=== PATIENT | female | born 1975 | race African-American/Black ===

== ENCOUNTER 2018-06-08 16:45 | Emergency (ER) | payer MEDICAID ==
[2018-06-08] MEDS ORDERED: Ketorolac INJ* 60 MG/2 ML VIAL IM ONE (18:38)
[2018-06-08] MEDS ORDERED: HYDROcodone/ACETAMIN 5-325 MG* 1 TAB PO ONE (18:38)
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
[2018-06-08 19:15] VITALS: BP 125/85
== END 2018-06-08 19:13 | disposition home or self-care (01) ==
LOC: ED 16:45
DX: K08.89 Other specified disorders of teeth and supporting structures (principal); F17.200 Nicotine dependence, unspecified, uncomplicated
CPT/HCPCS: 96372; 99282; J1885

== ENCOUNTER 2018-10-15 13:32 | Emergency (ER) | payer OTHER ==
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
[2018-10-15] MEDS ORDERED: Ketorolac INJ* 60 MG/2 ML VIAL IM ONE (14:23)
[2018-10-15 15:47] VITALS: BP 0/0
== END 2018-10-15 15:44 | disposition home or self-care (01) ==
LOC: ED 13:32
DX: S20.211A Contusion of right front wall of thorax, initial encounter (principal); K08.89 Other specified disorders of teeth and supporting structures; Z72.0 Tobacco use; Y04.0XXA Assault by unarmed brawl or fight, initial encounter; Y92.9 Unspecified place or not applicable
CPT/HCPCS: 96372; 99282; J1885

== ENCOUNTER 2018-12-18 17:36 | Emergency (ER) | payer OTHER ==
[2018-12-18 18:19] LABS: Influenza A Molecular NEGATIVE (Negative); Influenza B Molecular NEGATIVE (Negative)
[2018-12-18] MEDS ORDERED: Acetaminophen TAB* 325 MG PO ONE (20:45)
[2018-12-18] MEDS ORDERED: Albuterol/Ipratropium NEB.SOL* Albuterol 2.5 MG/Ipratropium 0.5 MG 3 ML INH ONE (21:19)
[2018-12-18] MEDS ORDERED: Oseltamivir CAP* 75 MG CAP PO ONE (21:21)
[2018-12-18] MEDS ORDERED: Ibuprofen TAB* 600 MG PO ONE (21:22)
[2018-12-18 21:30] LABS: ABS Basophils 0 10^3/ul (0-0.2); ABS Eosinophils 0 10^3/ul (0-0.6); ABS Lymphocytes 0.4 10^3/ul (1.0-4.8); ABS Monocytes 0.5 10^3/ul (0-0.8); ABS Neutrophils 3.9 10^3/ul (1.5-7.7); ABS Nucleated RBC 0 10^3/ul; Eosinophil % 0.2 %; Hematocrit 44 % (35-47); Hemoglobin 14.7 g/dl (12.0-16.0); Lymphocyte % 8.2 %; Mean Corpuscular HGB Conc 34 g/dl (31-36); Mean Corpuscular Hemoglobin 32 pg (27-31); Mean Corpuscular Volume 95 fL (80-97); Mean Platelet Volume 6.6 fL (7.4-10.4); Nucleated Red Blood Cells % 0.1; Platelet Count 200 10^3/ul (150-450); Red Cell Distribution Width 13 % (10.5-15); White Blood Count 4.8 10^3/ul (3.5-10.8)
[2018-12-18] MEDS: NS 0.9% 1000 ML** 1,000 ML IV ONE ×2 (21:42→21:58)
[2018-12-18] MEDS ORDERED: NS 0.9% 1000 ML** 1,000 ML IV ONE (21:51)
[2018-12-18 21:54] LABS: Albumin 4.9 g/dL (3.2-5.2); BUN/Creatinine Ratio 8.9 (8-20); C Reactive Protein 14.59 mg/L (<8.01); Calcium 9.4 mg/dL (8.6-10.3); EGFR African American 57.4 (>60); EGFR Non-African American 47.4 (>60); Globulin 2.5 g/dL (2-4); Potassium 3.6 mmol/L (3.5-5.0); Total Bilirubin 0.8 mg/dL (0.2-1.0); Total Protein 7.4 g/dL (6.4-8.9)
--- NOTE | 2018-12-18 22:42 | ED ---
Influenza-Like Illness - HPI Summary HPI Summary: 43-year-old female presents with flulike symptoms today. She admits to chills fever and body aches. She states that her chest feels tight and that feels short of breath. She denies abdominal pain. No nausea and vomiting. She states that she just feels very unwell. She did not take anything for her fever. Has no medical conditions. States she does get frequent bronchitis. She admits to headache. Denies any neck stiffness. is sick with similar symptoms. she admits to a cough - History of Current Complaint Chief Complaint: EDFluSymptoms Time Seen by Provider: 12/18/18 21:07 - Allergy/Home Medications Allergies/Adverse Reactions: Allergies Allergy/AdvReac Type Severity Reaction Status Date / Time No Known Allergies Allergy Verified 12/18/18 17:48 Home Medications: Home Medications traZODone TAB* [Desyrel TAB*] 50 mg PO BEDTIME 12/18/18 [History Confirmed 12/18] PMH/Surg Hx/FS Hx/Imm Hx Endocrine/Hematology History: Denies: Hx Anticoagulant Therapy, Hx Blood Disorders Respiratory History: Reports: Hx Chronic Obstructive Pulmonary Disease (COPD) Denies: Hx Asthma Infectious Disease History: No Infectious Disease History: Denies: Traveled Outside the [place] in Last 30 Days - Family History Known Family History: Positive: Non-Contributory - Social History Alcohol Use: None Hx Substance Use: No Substance Use Type: Reports: None Hx Tobacco Use: Yes Smoking Status (MU): Light Every Day Tobacco Smoker Review of Systems Positive: Fever, Chills, Fatigue Negative: Chest Pain Positive: Shortness Of Breath, Cough Negative: Abdominal Pain All Other Systems Reviewed And Are Negative: Yes Physical Exam Triage Information Reviewed: Yes Vital Signs On Initial Exam: Initial Vitals Temp Pulse Resp BP Pulse Ox 103.1 F 124 16 139/101 95 12/18/18 17:45 12/18/18 17:45 12/18/18 17:45 12/18/18 17:45 12/18/18 17:45 Vital Signs Reviewed: Yes Appearance: Positive: Ill-Appearing Skin: Positive: Warm, Dry Head/Face: Positive: Normal Head/Face Inspection Eyes: Positive: Normal, EOMI, VANI, Conjunctiva Clear ENT: Positive: Normal ENT inspection, Pharynx normal, TMs normal Neck: Positive: Supple, Nontender, No Lymphadenopathy. Negative: Nuchal Rigidity Respiratory/Lung Sounds: Positive: Breath Sounds Present, Wheezes Cardiovascular: Positive: Normal, RRR Abdomen Description: Positive: Nontender, Soft Bowel Sounds: Positive: Present Musculoskeletal: Positive: Normal Neurological: Positive: Normal Psychiatric: Positive: Normal Diagnostics - Vital Signs Vital Signs Temp Pulse Resp BP Pulse Ox 12/18/18 22:17 105 138/78 95 12/18/18 22:00 108 96 12/18/18 21:48 120 124/77 98 12/18/18 21:33 108 16 100 12/18/18 21:23 119 96 12/18/18 20:15 102.2 F 120 20 145/99 99 12/18/18 17:45 103.1 F 124 16 139/101 95 - Laboratory Lab Results: Lab Results 12/18/18 12/18/18 12/18/18 Range/Units 18:07 21:22 21:22 WBC 4.8 (3.5-10.8) 10^3/ul RBC 4.60 (4.00-5.40) 10^6/ul Hgb 14.7 (12.0-16.0) g/dl Hct 44 (35-47) % MCV 95 (80-97) fL MCH 32 H (27-31) pg MCHC 34 (31-36) g/dl RDW 13 (10.5-15) % Plt Count 200 (150-450) 10^3/ul MPV 6.6 L (7.4-10.4) fL Neut % (Auto) 81.9 % Lymph % (Auto) 8.2 % [place] % (Auto) 9.5 % Eos % (Auto) 0.2 % Baso % (Auto) 0.2 % Absolute Neuts (auto) 3.9 (1.5-7.7) 10^3/ul Absolute Lymphs (auto) 0.4 L (1.0-4.8) 10^3/ul Absolute Monos (auto) 0.5 (0-0.8) 10^3/ul Absolute Eos (auto) 0 (0-0.6) 10^3/ul Absolute Basos (auto) 0 (0-0.2) 10^3/ul Absolute Nucleated RBC 0 10^3/ul Nucleated RBC % 0.1 Sodium 133 L (135-145) mmol/L Potassium 3.6 (3.5-5.0) mmol/L Chloride 103 (101-111) mmol/L Carbon Dioxide 21 L (22-32) mmol/L Anion Gap 9 (2-11) mmol/L BUN 11 (6-24) mg/dL Creatinine 1.24 H (0.51-0.95) mg/dL Est GFR ( Amer) 57.4 (>60) Est GFR (Non-Af Amer) 47.4 (>60) BUN/Creatinine Ratio 8.9 (8-20) Glucose 146 H (70-100) mg/dL Lactic Acid (0.5-2.0) mmol/L Calcium 9.4 (8.6-10.3) mg/dL Total Bilirubin 0.80 (0.2-1.0) mg/dL AST 15 (13-39) U/L ALT 15 (7-52) U/L Alkaline Phosphatase 54 (34-104) U/L C-Reactive Protein 14.59 H (<8.01) mg/L Total Protein 7.4 (6.4-8.9) g/dL Albumin 4.9 (3.2-5.2) g/dL Globulin 2.5 (2-4) g/dL Albumin/Globulin Ratio 2.0 (1-3) Influenza A (Rapid) Negative (Negative) Influenza B (Rapid) Negative (Negative) 12/18/18 Range/Units 21:22 WBC (3.5-10.8) 10^3/ul RBC (4.00-5.40) 10^6/ul Hgb (12.0-16.0) g/dl Hct (35-47) % MCV (80-97) fL MCH (27-31) pg MCHC (31-36) g/dl RDW (10.5-15) % Plt Count (150-450) 10^3/ul MPV (7.4-10.4) fL Neut % (Auto) % Lymph % (Auto) % [place] % (Auto) % Eos % (Auto) % Baso % (Auto) % Absolute Neuts (auto) (1.5-7.7) 10^3/ul Absolute Lymphs (auto) (1.0-4.8) 10^3/ul Absolute Monos (auto) (0-0.8) 10^3/ul Absolute Eos (auto) (0-0.6) 10^3/ul Absolute Basos (auto) (0-0.2) 10^3/ul Absolute Nucleated RBC 10^3/ul Nucleated RBC % Sodium (135-145) mmol/L Potassium (3.5-5.0) mmol/L Chloride (101-111) mmol/L Carbon Dioxide (22-32) mmol/L Anion Gap (2-11) mmol/L BUN (6-24) mg/dL Creatinine (0.51-0.95) mg/dL Est GFR ( Amer) (>60) Est GFR (Non-Af Amer) (>60) BUN/Creatinine Ratio (8-20) Glucose (70-100) mg/dL Lactic Acid 1.6 (0.5-2.0) mmol/L Calcium (8.6-10.3) mg/dL Total Bilirubin (0.2-1.0) mg/dL AST (13-39) U/L ALT (7-52) U/L Alkaline Phosphatase (34-104) U/L C-Reactive Protein (<8.01) mg/L Total Protein (6.4-8.9) g/dL Albumin (3.2-5.2) g/dL Globulin (2-4) g/dL Albumin/Globulin Ratio (1-3) Influenza A (Rapid) (Negative) Influenza B (Rapid) (Negative) Result Diagrams: 12/18/18 21:22 12/18/18 21:22 Lab Statement: Any lab studies that have been ordered have been reviewed, and results considered in the medical decision making process. - Radiology chest Radiology Interpretation Completed By: ED Physician Summary of Radiographic Findings: nad Re-Evaluation - Re-Evaluation First Eval Re-Evaluation Time: 22:46 Change: Improved Comment: lungs CTA. feeling better Flu Symptom Course/Dx - Course Course Of Treatment: 43-year-old female presents with flulike symptoms today. She admits to chills fever and body aches. She states that her chest feels tight and that feels short of breath. She denies abdominal pain. No nausea and vomiting. She states that she just feels very unwell. She did not take anything for her fever. Has no medical conditions. States she does get frequent bronchitis. She admits to headache. Denies any neck stiffness. is sick with similar symptoms. On exam wheezing noted. gave breathing treatment and symptoms improve. Chest x-ray is normal. White blood count normal. Gave fluids and tachycardia resolved. is flu a positive so likely has the flu. We'll treat with Tamiflu. Patient understands agrees with plan. - Diagnoses Differential Diagnosis/HQI/PQRI: Positive: Influenza, Pneumonia, Upper Respiratory Infection Provider Diagnoses: Influenza Discharge - Sign-Out/Discharge Documenting (check all that apply): Patient Departure Patient Received Moderate/Deep Sedation with Procedure: No - Discharge Plan Condition: Good Disposition: HOME Prescriptions: Oseltamivir CAP* [Tamiflu CAP*] 75 mg PO BID #9 cap Patient Education Materials: Influenza (ED) Forms: *Gen. Provider Communication Referrals: Aris Torres MD [Primary Care Provider] - Additional Instructions: Take Tamiflu twice for 5 days first dose given in ED take 1-2 puff inhaler every 6 hours as needed for shortness of breath Take Tylenol and ibuprofen for muscle aches and fever every 6 hours Saline rinse can be used multiple times a day for nasal congestion Drink plenty of fluids Follow up with primary within 5 days Return to ED if develop any new or worsening symptoms - Billing Disposition and Condition Condition: GOOD Disposition: Home
[2018-12-18] MEDS ORDERED: A lbuterol Hfa (PREPAK) 1 MDI - ED TAKE HOME DISPENSING ONLY INHH ONE (22:46)
[2018-12-18] MEDS ORDERED: Albuterol HFA INHALER* 8 gm MDI INH PRN (22:57)
[2018-12-18] MEDS ORDERED: Albuterol HFA INHALER* 8 gm MDI INH ONE ×2 (23:00→23:45)
[2018-12-18 23:32] VITALS: BP 153/78
== END 2018-12-18 23:31 | disposition home or self-care (01) ==
LOC: ED 17:36
DX: J11.1 Influenza due to unidentified influenza virus with other respiratory manifestations (principal); R50.9 Fever, unspecified; F17.210 Nicotine dependence, cigarettes, uncomplicated; R06.02 Shortness of breath; R05 Cough
CPT/HCPCS: 36415; 71046; 80053; 83605; 85025; 86140; 87040; 96360; 96361; 99284; A9270-GY

== ENCOUNTER 2019-01-31 17:46 | Emergency (ER) | payer OTHER ==
--- NOTE | 2019-01-31 18:12 | ED ---
Hypertension - HPI Summary HPI Summary: A 43 y/o female presents to [facility] with a chief complaint of her heart going too fast since yesterday. Vital signs while in room HR: 80bpm, O2 Sat: 100, BP : 156/109. The patient notes that she has not had high blood pressure before. She states that her BP was normal when she last saw her PCP in December 2018. She denies any swelling of her legs or anxiety. She reports taking Trazodone, but doesnt take other medications. She reports that she was recently diagnosed with a heart murmur. She reports occasion EtOH use but denies drug use. - History of Current Complaint Chief Complaint: EDHypertension Stated Complaint: MY HEART IS GOING TO FAST PER PT Time Seen by Provider: 01/31/19 18:03 Hx Obtained From: Patient Onset/Duration: Started Hours Ago, Still Present Timing: Constant, Lasting Hours Reported Blood Pressure Prior To Arrival: 170/115 at triage, 156/109 in the ED room Aggravating Factor(s): Nothing Alleviating Factor(s): Position Associated Signs & Symptoms: Negative - anxiety, swelling - Allergies/Home Medications Allergies/Adverse Reactions: Allergies Allergy/AdvReac Type Severity Reaction Status Date / Time No Known Allergies Allergy Verified 01/31/19 17:51 PMH/Surg Hx/FS Hx/Imm Hx Endocrine/Hematology History: Denies: Hx Anticoagulant Therapy, Hx Blood Disorders Respiratory History: Reports: Hx Chronic Obstructive Pulmonary Disease (COPD) Denies: Hx Asthma - Surgical History Surgery Procedure, Year, and Place: none reported Infectious Disease History: No Infectious Disease History: Denies: Traveled Outside the [place] in Last 30 Days - Family History Known Family History: Negative: Blood Disorder - Social History Alcohol Use: Occasionally Hx Substance Use: No Substance Use Type: Reports: None Hx Tobacco Use: Yes Smoking Status (MU): Light Every Day Tobacco Smoker Review of Systems Negative: Fever Positive: Other - positive: feels like heart is going fast, current BP is 156/ 109 Negative: Edema Negative: Anxious All Other Systems Reviewed And Are Negative: Yes Physical Exam - Summary Physical Exam Summary: Appearance: Well appearing, no pain distress Skin: warm, dry, reflects adequate perfusion Head/face: normal Eyes: EOMI, VANI ENT: normal Neck: supple, non-tender Respiratory: CTA, breath sounds present Cardiovascular: RRR, pulses symmetrical Abdomen: non-tender, soft Musculoskeletal: normal, strength/ROM intact Neuro: normal, sensory motor intact, A&Ox3 Triage Information Reviewed: Yes Vital Signs On Initial Exam: Initial Vitals Temp Pulse Resp BP Pulse Ox 98.2 F 83 16 170/115 100 01/31/19 17:48 01/31/19 17:48 01/31/19 17:48 01/31/19 17:48 01/31/19 17:48 Vital Signs Reviewed: Yes Diagnostics - Vital Signs Vital Signs Temp Pulse Resp BP Pulse Ox 01/31/19 17:48 98.2 F 83 16 170/115 100 - Laboratory Result Diagrams: 01/31/19 18:27 01/31/19 18:27 Lab Statement: Any lab studies that have been ordered have been reviewed, and results considered in the medical decision making process. - Radiology CXR Radiology Interpretation Completed By: ED Physician Summary of Radiographic Findings: No acute process. Pending official imaging report. - EKG 18:23 Cardiac Rate: NL - 72 bpm EKG Rhythm: Sinus Rhythm Summary of EKG Findings: Normal sinus rhythm at [address] changes and early repolarization. Re-Evaluation - Re-Evaluation First Eval Re-Evaluation Time: 19:09 Change: Unchanged Comment: Discussed results. Hypertension Course/Dx - Course Course Of Treatment: A 43 y/o female presents to [facility] with a chief complaint of her heart going too fast since yesterday. Vital signs while in room HR: 80bpm, O2 Sat: 100, BP: 156/109. EKG at 18:23 showed Normal sinus rhythm at [address] changes and early repolarization. Bloodwork and chemistries obtained. CXR was negative. In the ED course the patient was given 0.2 mg Clonidine PO. The patient will be discharged with a prescription for Norvasc. Strict return precautions were given. The patient is agreeable with this plan. - Diagnoses Differential Diagnosis/HQI PQRI: Hypertension Provider Diagnoses: Hypertension, Anxiety Discharge - Sign-Out/Discharge Documenting (check all that apply): Patient Departure - DC Patient Received Moderate/Deep Sedation with Procedure: No - Discharge Plan Condition: Stable Disposition: HOME Prescriptions: Amlodipine Besylate [Norvasc] 10 mg PO ONCE #30 tablet Patient Education Materials: Hypertension (ED), Anxiety (ED) Referrals: Torres,Aris, MD [Primary Care Provider] - 3 Days Additional Instructions: Return to the ED if you experience any new or worsening symptoms. - Billing Disposition and Condition Condition: STABLE Disposition: Home - Attestation Statements Document Initiated by Rohan: Yes Documenting Scribe: Andres Wallace Provider For Whom Rohan is Documenting (Include Credential): Dilip Lowe MD Scribe Attestation: IAndres, scribed for Dilip Lowe MD on 01/31/19 at 2024. Scribe Documentation Reviewed: Yes Provider Attestation: The documentation as recorded by the Andres cervantes accurately reflects the service I personally performed and the decisions made by , Dilip Lowe MD Status of Scribe Document: Viewed
[2019-01-31 18:42] LABS: ABS Basophils 0.1 10^3/ul (0-0.2); ABS Eosinophils 0.1 10^3/ul (0-0.6); ABS Monocytes 0.4 10^3/ul (0-0.8); ABS Neutrophils 4.9 10^3/ul (1.5-7.7); ABS Nucleated RBC 0 10^3/ul; Eosinophil % 1.3 %; Hematocrit 41 % (33-41); Hemoglobin 13.8 g/dL (12.0-16.0); Lymphocyte % 35.1 %; Mean Corpuscular HGB Conc 34 g/dL (31-36); Mean Corpuscular Hemoglobin 32 pg (27-31); Mean Corpuscular Volume 95 fL (80-97); Mean Platelet Volume 6.5 fL (7.4-10.4); Nucleated Red Blood Cells % 0.1; Platelet Count 288 10^3/uL (150-450); Red Cell Distribution Width 13 % (10.5-15); White Blood Count 8.6 10^3/uL (3.5-10.8)
[2019-01-31 18:49] LABS: Activated Partial Thrombo Time 30.9 seconds (26.0-36.3); INR 0.95 (0.77-1.02)
[2019-01-31 19:01] LABS: Albumin 4.9 g/dL (3.2-5.2); Albumin/Globulin Ratio 1.8 (1-3); BUN/Creatinine Ratio 15.2 (8-20); EGFR African American 74.4 (>60); EGFR Non-African American 61.5 (>60); Globulin 2.8 g/dL (2-4); Potassium 3.9 mmol/L (3.5-5.0); Total Bilirubin 0.9 mg/dL (0.2-1.0); Total Protein 7.7 g/dL (6.4-8.9)
[2019-01-31 19:03] LABS: Troponin I 0.01 ng/mL (<0.04)
[2019-01-31] MEDS ORDERED: cloNIDine TAB* 0.1 MG PO ONE (19:28)
[2019-01-31 20:01] LABS: TSH (Thyroid Stimulating Horm) 1.26 mcIU/mL (0.34-5.60)
[2019-01-31 20:27] VITALS: BP 143/99
== END 2019-01-31 20:26 | disposition home or self-care (01) ==
LOC: ED 17:46
DX: I10 Essential (primary) hypertension (principal); F41.9 Anxiety disorder, unspecified; F17.200 Nicotine dependence, unspecified, uncomplicated
CPT/HCPCS: 36415; 71045; 80053; 83605; 84443; 84484; 85025; 85610; 85730; 93005; 99283; A9270-GY

== ENCOUNTER 2019-03-05 20:10 | Emergency (ER) | payer OTHER ==
--- NOTE | 2019-03-05 20:29 | ED ---
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 Patient denies any symptoms of illness, injury or pain. Denies any medical history. - History of Current Complaint Chief Complaint: EDGeneral Stated Complaint: LABS PER POLICE Time Seen by Provider: 03/05/19 20:21 Associated Signs and Symptoms: Negative PMH/Surg Hx/FS Hx/Imm Hx Endocrine/Hematology History: Denies: Hx Anticoagulant Therapy, Hx Blood Disorders Cardiovascular History: Denies: Hx Pacemaker/ICD Respiratory History: Reports: Hx Chronic Obstructive Pulmonary Disease (COPD) Denies: Hx Asthma History: Denies: Hx Dialysis Sensory History: Denies: Hx Contacts or Glasses, Hx Hearing Aid Opthamlomology History: Denies: Hx Contacts or Glasses Neurological History: Denies: Hx Dementia Psychiatric History: Reports: Hx Anxiety, Hx Depression, Hx Community Mental Health Tx Denies: Hx Eating Disorder, Hx of Violent Episodes Against Others - Surgical History Surgery Procedure, Year, and Place: none reported Infectious Disease History: No Infectious Disease History: Denies: Traveled Outside the [place] in Last 30 Days - Family History Known Family History: Positive: Non-Contributory Negative: Blood Disorder - Social History Alcohol Use: Occasionally Hx Substance Use: No Substance Use Type: Reports: None Substance Use Comment - Amount & Last Used: crack, K2 Hx Tobacco Use: Yes Smoking Status (MU): Light Every Day Tobacco Smoker Type: Cigarettes Review of Systems Constitutional: Negative Eyes: Negative ENT: Negative Cardiovascular: Negative Respiratory: Negative Gastrointestinal: Negative Genitourinary: Negative Musculoskeletal: Negative Skin: Negative Neurological: Negative Psychological: Normal All Other Systems Reviewed And Are Negative: Yes Physical Exam Triage Information Reviewed: Yes Vital Signs On Initial Exam: Initial Vitals Temp Pulse Resp BP Pulse Ox 98.2 F 93 16 159/111 98 03/05/19 20:13 03/05/19 20:13 03/05/19 20:13 03/05/19 20:13 03/05/19 20:13 Vital Signs Reviewed: Yes Appearance: Positive: Well-Appearing Skin: Positive: Warm Head/Face: Positive: Normal Head/Face Inspection Eyes: Positive: Normal Neck: Positive: Supple Respiratory/Lung Sounds: Positive: Clear to Auscultation Cardiovascular: Positive: Normal Abdomen Description: Positive: Nontender Musculoskeletal: Positive: Normal Neurological: Positive: Normal Psychiatric: Positive: Normal AVPU Assessment: Alert - [place] Coma Scale Best Eye Response: 4 - Spontaneous Best Motor Response: 6 - Obeys Commands Best Verbal Response: 5 - Oriented Coma Scale Total: 15 Diagnostics - Vital Signs Vital Signs Temp Pulse Resp BP Pulse Ox 03/05/19 20:13 98.2 F 93 16 159/111 98 - Laboratory Lab Statement: Any lab studies that have been ordered have been reviewed, and results considered in the medical decision making process. 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 Patient denies any symptoms of illness, injury or pain. Denies any medical history. Physical exam unremarkable. - Diagnoses Provider Diagnoses: Encounter for medical screening examination Discharge - Sign-Out/Discharge Documenting (check all that apply): Patient Departure Patient Received Moderate/Deep Sedation with Procedure: No - Discharge Plan Condition: Stable Disposition: HOME Referrals: Aris Torres MD [Primary Care Provider] - - Billing Disposition and Condition Condition: STABLE Disposition: Home
[2019-03-05 21:04] VITALS: BP 0/0
[2019-03-05 21:18] LABS: Rapid HIV 1 Nonreactive (Nonreactive)
[2019-03-06 11:10] LABS: Hepatitis B Surface Antigen Nonreactive (Nonreactive)
[2019-03-06 11:35] LABS: Hepatitis C Antibody Nonreactive (Nonreactive)
[2019-03-06 13:40] LABS: Hepatitis B Surface AB Not Immune (Immune)
== END 2019-03-05 21:00 | disposition home or self-care (01) ==
LOC: ED 20:10
DX: Z11.8 Encounter for screening for other infectious and parasitic diseases (principal); F17.210 Nicotine dependence, cigarettes, uncomplicated
CPT/HCPCS: 36415; 86703; 86706; 86803; 87340; 99282

== ENCOUNTER → 2019-04-19 13:21 | Emergency (ER) | payer OTHER ==
[~2019-04-19 13:21] MED LIST: HYDROcodone/ACETAMIN 5-325 MG* 1 TAB PO ONE
--- OUTSIDE RECORDS SUMMARY | 2019-04-19 13:35 | XMS REPORT | Continuity of Care Document ---
:1975 Author Organization [facility] Address [address], [place] [id number] Phone Care Team Providers Name Role Phone Neema Llanos Unavailable Unavailable Allergies, Adverse Reactions, Alerts Substance Reaction Status No Known Allergies Active Medications Medication Instructions Dosage Effective Dates Status Comments (start - stop) DEPO-PROVERA Not Available - Active (unknown strength) TRAZODONE HCL Not Available - Active (unknown strength) Cyred 0.15 1 PO daily - No Longer mg-0.03 mg tablet Active RISPERDAL Not Available - No Longer (unknown Active strength) NAPROXEN (unknown take 1 tablet by Not Available - No Longer strength) oral route 2 times Active every day with food Problems Condition Effective Dates (start - Clinical Status Comments stop) Encntr screen for infections w sexl mode of transmiss 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) (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) w/o abn findings Body mass index (BMI) 24.0-24.9, adult Encntr screen for dis of the bld/bld-form org[facility]immun [facility] Encounter for surveillance of injectable contraceptive Encounter for oth general cnsl and advice on contraception Abnormal uterine and vaginal bleeding, unspecified Encounter for test, result negative Encounter for initial prescription of injectable contracep Frequency of micturition Encounter for test, result negative Human immunodeficiency virus [HIV] - counseling Urinary tract infection, site not specified Encntr screen for infections w sexl mode of transmiss Encounter for initial prescription of injectable contracep Body mass index (BMI) 26.0-26.9, adult Procedures Procedure Date PREV VISIT, EST, AGE 40-64 CHYLMD DNA, AMP PROBE N.GONORRHOEAE, DNA, AMP PROB HPV, DNA, AMP PROBE HIGH RISK SUREPATH BLOOD PRESSURE Height/Weight BREAST EXAM OTHER Medical Services Contraceptive Animal Ride Manager.Svc. Other Animal Ride Manager.Svc. STI PREVENTIVE COUNSELING, Under 8 Minutes N.GONORRHOEAE, DNA, AMP PROB CHYLMD DNA, AMP PROBE TRICHOMONAS VAGIN, DIR PROBE N.GONORRHOEAE, DNA, PHARYNGEAL CHYLMD, DNA, PHARYNGEAL Results Test Name Date and Time Measure Units Reference Range Abnormal Flag Status Comments No information Advance Directives Directive Yes / No Effective Date File Name No information Encounters Encounter Practice Location Reason(s) Diagnoses Date Provider Providers Description For Visit Copied on Encounter PREV VISIT, [facility] Encntr screen for [place] Referring EST, [facility] [place] infections w sexl 1 Neema. Provider: 40-64 Southern mode of [address] transmissEncntr for [place], [address] exam (general) St, W [place] (routine) w/o abn [place], , St, [place], findings [place], [place], [address]. [place], [address]. [id number], tel:+60 tel:[phone] tel:[phone] [facility] Body mass index Aristides-0 Miguel Ángel Referring [facility] [place] (BMI) 24.0-24.9, 6-201 Deja. Provider: [facility] adultEncntr screen 9 [address] for dis of the [place] Miguel Ángel J, [facility], [address]bld-form [address], [address] [place] org/immun [place], [place] [address], [place], [place], [place], [place], [place] [address], [place], [address]. [id number], injectable [place]. tel:+ [place] contraceptiveEncoun tel: [phone] tel:[phone] ter for oth general [phone] cnsl and advice on contraceptionAbnorm al uterine and vaginal bleeding, unspecified [facility] Encounter for Miguel Ángel Referring [facility] [place] test, Deja. Provider: Sulma result 9 [address] negativeEncounter [place] Miguel Ángel J, [place], [address], [address] [place] prescription of [place], [place] [address], St, [place], injectable [place], [place], [place] [address], [place], [address]. [id number], [place]. tel: [place] tel: [phone] tel:[phone] [facility] Frequency of White Referring [facility] [place] micturitionEncounte Amaya. Provider: Sulma r for 9 [address] test, result [place], [address], [address], [place] W [place] immunodeficiency [place], St, St, [place], virus [HIV] [place], [place], [place], counseling[place] [address], [place], [address]. [id number], tract infection, [place]. [place] site not tel:+[phone] specifiedEncntr [phone] screen for infections w sexl mode of transmissEncounter for initial prescription of injectable contracepBody mass index (BMI) 26.0-26.9, adult Family History Family Member Diagnosis Age At Onset 1st degree relative No hx of coronary heart disease (female <65, male <55) 1st degree relative No hx of cancer of breast, colon, endometrium or ovary 1st degree relative No hx of venous thromboembolism Maternal grandmother Cancer, unknown (Cause Of ) Immunizations Vaccine Date Status Comments No information Payers Payer name Insurance type Covered alliance party ID Authorization(s) Medicaid MC [id number] Social History Type Description Quantity Date Captured Comments Alcohol Use Details Unknown Caffeine Use Details Unknown Tobacco Use Status Moderate cigarette smoker (10-19 cigs/day) Smoking Status Heavy tobacco smoker Smoking Tobacco Use Cigarette: No Details Available Cigarette: 0.5 Packs per day Details Sex Female Vital Signs Date / Height Weight BMI Pulse Blood Temperature Respiratory Body Head BMI Pulse Inhaled Time: Rate Pressure Rate Surface Circumference percentile Ox Ox Area No information Chief Complaint And Reason For Visit No information Reason For Referral Reason For Referral No information Plan Of Treatment Date Type Action Status Appointment SOPHIE CRUZ BOOKED History Of Present Illness Encounter Date Complaint History Of Present Illness No information Functional Status Date Functional Assessment No information Medications Administered Medication Instructions Dosage Effective Dates (start - stop) Status Comments No information Instructions Date Instruction Additional Information No information Assessments Type Assessment Date assessment Encntr screen for infections w sexl mode of transmiss assessment 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
--- OUTSIDE RECORDS SUMMARY | 2019-04-19 13:36 | XMS REPORT | Continuity of Care Document ---
:1975 Author Organization [facility] Address [address], [place] [phone] Phone Care Team Providers Name Role Phone Deja Del Rosario NP Unavailable Unavailable Allergies, Adverse Reactions, Alerts Substance Reaction Status No Known Allergies Active Medications Medication Instructions Dosage Effective Status Comments Dates (start - stop) Cyred 0.15 mg-0.03 1 PO daily - Active mg tablet TRAZODONE HCL Not Available - Active (unknown strength) RISPERDAL (unknown Not Available - Active strength) NAPROXEN (unknown take 1 tablet by Not Available - Active strength) oral route 2 times every day with food Depo-Provera 150 IM Q 11-13 weeks - No Longer mg/mL intramuscular Active suspension Problems Condition Effective Dates (start - Clinical Status Comments stop) Body mass index (BMI) 24.0-24.9, adult Encntr screen for dis of the bld/bld-form org/immun [facility] Encounter for surveillance of injectable contraceptive Encounter [...] index (BMI) 26.0-26.9, adult Procedures Procedure Date HEMOGLOBIN OFFICE/OUTPATIENT VISIT, EST BLOOD PRESSURE Height/Weight OTHER Medical Services Contraceptive Furniture Rental Consultant.Svc. Other Furniture Rental Consultant.Svc. STI CYRED Results Test Name Date and Time Measure Units Reference Range Abnormal Flag Status Comments Panel Description: Hemoglobin Final Hemoglobin 10:15:05 14.90 gm/dL Final Advance Directives Directive Yes / No Effective Date File Name No information Encounters Encounter Practice Location Reason(s) For Diagnoses Date Provider Providers Description Visit Copied on Encounter OFFICE/OUTPA [facility] Breakthrough Body mass index Miguel Ángel Referring TIENT VISIT, [facility] [place] Bleeding on (BMI) 24.0-24.9, 6- Deja. Provider: ANGELICA Ozuna [facility] (chief adultEncntr 9 [address] complaint) screen for dis Rex [place]helan, [address] bld/bld-form [place], [address], St, [place], org/immun [place], [place], [place], [place]sm[place]ounter [address], [place], [address]. [id number], for surveillance [place]. tel:+ [place] of injectable tel:+ [phone] tel:[phone] contraceptiveEnc [phone] ounter for oth general cnsl and advice on contraceptionAbn ormal uterine and vaginal bleeding, unspecified [facility] Encounter for Referring [facility] [place] test, Deja. Provider: Sulma result 9 [address] negativeEncounte Rex [place]helan, [address], [address] prescription of [place], [address], [place], [place], [place], [place], [place] [address], [place], [address]. [id number], [place]. tel:+[phone] [place] tel:+ [phone] tel:[phone] [facility] Frequency of White Referring [facility] [place] micturitionEncou 4-201 Amaya. Provider: Sulma nter for 9 [address] test, [place], [address], [address], W [place] W [place] negativeHuman [place], St, St, [place], immunodeficiency [place], [place], virus [HIV] [address], [place], [address]. [id number], counselingUrinar [place]. [place] y tract tel:[phone] infection, site [phone] not specifiedEncntr screen for infections w sexl mode of transmissEncount er for initial prescription of injectable contracepBody mass [...] Covered alliance party ID Authorization(s) Medicaid MC [id number] Social History Type Description Quantity Date Captured Comments Alcohol Use Details Unknown Caffeine Use Details Unknown Tobacco Use Status Smoking Status Heavy tobacco smoker Smoking Tobacco Use Cigarette: No Details Available Cigarette: 1 Packs per day Details Sex Female Vital Signs Date / Height Weight BMI Pulse Blood Temperature Respiratory Body Head BMI Pulse Inhaled Time: Rate Pressure Rate Surface Circumference percentile Ox Ox Area 66.00 152.00 24.5 108/80 -2019 in lbs 3 mm[Hg] 10:10 kg/m AM eter (2) Chief Complaint And Reason For Visit Most recent encounter only, dated '04/12/2019 10:30'. Breakthrough Bleeding on BCM (chief complaint) Reason For Referral Reason For Referral No information Plan Of Treatment Date Type Action Status Appointment SOPHIE CRUZ BOOKED Appointment SOPHIE CRUZ BOOKED History Of Present Illness Encounter Date Complaint History Of Present Illness No information Functional Status Date Functional Assessment No information Medications Administered Medication Instructions Dosage Effective Dates (start - stop) Status Comments No information Instructions Date Instruction Additional Information No information Assessments Type Assessment Date assessment Body mass index (BMI) 24.0-24.9, adult assessment Encntr screen [facility] dis [facility] Encounter for surveillance of injectable contraceptive assessment Encounter for oth general cnsl and advice on contraception 2018 assessment Abnormal uterine and vaginal bleeding, unspecified Goals Health Concern Goal Type Priority Status Date No information Medical Equipment Description Device [place] Device Identifier Effective Dates (start - stop ) Status No information Mental Status Date Cognitive Assessment Normal Orientation Health Concerns Observation Date No information Concern Status Date No information
--- OUTSIDE RECORDS SUMMARY | 2019-04-19 13:36 | XMS REPORT | Continuity of Care Document ---
:1975 Author Organization [facility] Address [address], [place] [phone] Phone Care Team Providers Name Role Phone Deja Del Rosario NP Unavailable Unavailable Allergies, Adverse Reactions, Alerts Substance Reaction Status No Known Allergies Active Medications Medication Instructions Dosage Effective Status Comments Dates (start - stop) Depo-Provera 150 IM Q 11-13 weeks - Active mg/mL intramuscular suspension TRAZODONE HCL Not Available - Active (unknown strength) RISPERDAL (unknown Not Available - Active strength) NAPROXEN (unknown take 1 tablet by Not Available - Active strength) oral route 2 times every day with food Depo-Provera 150 IM Q 11-13 weeks - No Longer mg/mL intramuscular Active suspension Problems Condition Effective Dates (start - Clinical Status Comments stop) Encounter for test, result negative Encounter for initial prescription of injectable contracep Frequency of micturition Encounter for test, result negative Human immunodeficiency virus [HIV] - counseling Urinary tract infection, site not specified Encntr screen for infections w sexl mode of transmiss Encounter for initial prescription of injectable contracep Body mass index (BMI) 26.0-26.9, adult Procedures Procedure Date URINE TEST OFFICE/OUTPATIENT VISIT, EST OTHER Medical Services Logistics Account Manager.Svc. Other Logistics Account Manager.Svc. STI BLOOD PRESSURE DEPO Results Test Name Date and Time Measure Units Reference Range Abnormal Flag Status Comments Panel Description: High Sensitivity Urine Test Final High Sensitivity Urine 13:18:59 NegativeInternal Quality Final Test Control: Positive Advance Directives Directive Yes / No Effective Date File Name No information Encounters Encounter Practice Location Reason(s) Diagnoses Date Provider Providers Description For Visit Copied on Encounter OFFICE/OUTPA [facility] Encounter for Miguel Ángel Referring TIENT VISIT, [facility] [place] Control test, Deja. Provider: ANGELICA Ozuna Consult result 9 [address] (chief negativeEncounter [place] Miguel Ángel J, [address], [address] complaint) for initial St, [address] [place] prescription of [place], [place] [address], St, [place], [place]able [place], [place], [place] [address], [place], [address]. [id number], [place]. tel:+602 tel:[phone] tel:[phone] [facility] Frequency of White Referring [facility] [place] micturitionEncounte Amaya. Provider: Sulma r for 9 [address] test, result [place], [address], [address], W [place] immunodeficiency [place], St, St, [place], virus [HIV] [place], [place], [place], counseling[place] [address], [place], [address]. [id number], tract infection, [place]. [place] site not tel:+[phone] specifiedEncntr [id number] screen for infections w sexl mode of [...] information Payers Payer name Insurance type Covered democrat ID Authorization(s) Medicaid MC [id number] Social History Type Description Quantity Date Captured [...] information Chief Complaint And Reason For Visit Most recent encounter only, dated '03/22/2019 13:00'. Control Consult (chief complaint) Reason For Referral Reason For [...] No information Assessments Type Assessment Date assessment Encounter for test, result negative assessment Encounter for initial prescription of injectable contracep 2018 Goals Health Concern Goal Type Priority Status Date No information Medical Equipment Description Device [place] Device Identifier Effective Dates (start - stop ) Status No information Mental Status Date Cognitive Assessment Normal Orientation Health Concerns Observation Date No information Concern Status Date No information
--- NOTE | 2019-04-19 14:34 | ED ---
Throat Pain/Nasal Congestion - HPI Summary HPI Summary: Pt is a 43 y/o F presenting to the ED with a chief complaint of R-sided dental pain. She states a piece of her R lower tooth has chipped off, and she reports severe pain. She denies fever. - History of Current Complaint Chief Complaint: EDDentalPain Hx Obtained From: Patient Onset/Duration: Gradual Onset, Lasting Days, Still Present Severity: Moderate Related History: Other (Noted In Comments) - hx poor dentition - Allergies/Home Medications Allergies/Adverse Reactions: Allergies Allergy/AdvReac Type Severity Reaction Status Date / Time No Known Allergies Allergy Verified 04/19/19 13:26 PMH/Surg Hx/FS Hx/Imm Hx Previously Healthy: Yes Endocrine/Hematology History: Denies: Hx Anticoagulant Therapy, Hx Blood Disorders Cardiovascular History: Denies: Hx Pacemaker/ICD Respiratory History: Reports: Hx Chronic Obstructive Pulmonary Disease (COPD) Denies: Hx Asthma History: Denies: Hx Dialysis Sensory History: Denies: Hx Contacts or Glasses, Hx Hearing Aid Opthamlomology History: Denies: Hx Contacts or Glasses Neurological History: Denies: Hx Dementia Psychiatric History: Reports: Hx Anxiety, Hx Depression, Hx Community Mental Health Tx Denies: Hx Eating Disorder, Hx of Violent Episodes Against Others - Surgical History Surgery Procedure, Year, and Place: none reported Infectious Disease History: No Infectious Disease History: Denies: Traveled Outside the [place] in Last 30 Days - Family History Known Family History: Negative: Blood Disorder - Social History Alcohol Use: Occasionally Hx Substance Use: No Substance Use Type: Reports: None Substance Use Comment - Amount & Last Used: crack, K2 Hx Tobacco Use: Yes Smoking Status (MU): Light Every Day Tobacco Smoker Type: Cigarettes Review of Systems Negative: Fever Positive: Dental Pain All Other Systems Reviewed And Are Negative: Yes Physical Exam - Summary Physical Exam Summary: Constitutional: Well-developed, Well-nourished, Alert. (-) Distressed Skin: Warm, Dry HENT: Normocephalic; Atraumatic. The first premolar on the R lower jaw is atraumatically avulsed, with multiple visible caries, and the nerve root is exposed. There are no signs of infection, discharge, bleeding, erythema to the gum line, evidence of purulence. She typically has poor dentition, there are multiple teeth extracted d/t dental caries, and there are no teeth past the first premolar. Eyes: Conjunctiva normal Neck: Musculoskeletal ROM normal neck. (-) JVD, (-) Stridor, (-) Tracheal deviation Cardio: Rhythm regular, rate normal, Heart sounds normal; Intact distal pulses; The pedal pulses are 2+ and symmetric. Radial pulses are 2+ and symmetric. Pulmonary/Chest wall: Effort normal. (-) Respiratory distress, (-) Wheezes, (-) Rales Abd: Soft, (-) tenderness, (-) Distension, (-) Guarding, (-) Rebound Musculoskeletal: (-) Edema Neuro: Alert, Oriented x3 Psych: Mood and affect Normal Triage Information Reviewed: Yes Vital Signs On Initial Exam: Initial Vitals Temp Pulse Resp BP Pulse Ox 97.8 F 74 18 157/111 99 04/19/19 13:24 04/19/19 13:24 04/19/19 13:24 04/19/19 13:24 04/19/19 13:24 Vital Signs Reviewed: Yes Diagnostics - Vital Signs Vital Signs Temp Pulse Resp BP Pulse Ox 04/19/19 13:24 97.8 F 74 18 157/111 99 - Laboratory Lab Statement: Any lab studies that have been ordered have been reviewed, and results considered in the medical decision making process. EENT Course/Dx - Course Course Of Treatment: Pt is a 43 y/o F presenting to the ED with a chief complaint of R-sided dental pain. She states a piece of her R lower tooth has chipped off, and she reports severe pain. She denies fever. On exam, the first premolar on the R lower jaw is atraumatically avulsed, with multiple visible caries, and the nerve root is exposed. There are no signs of infection, discharge, bleeding, erythema to the gum line, evidence of purulence. She typically has poor dentition, there are multiple teeth extracted d/t dental caries, and there are no teeth past the first premolar. I advised the patient to call her dentist as soon as possible upon returning home, and to be adamant about getting an appointment to have the tooth removed. She states that she understands and is agreeable with discharge. Her dx will be dental pain. - Diagnoses Provider Diagnoses: Toothache Discharge - Sign-Out/Discharge Documenting (check all that apply): Patient Departure Patient Received Moderate/Deep Sedation with Procedure: No - Discharge Plan Condition: Stable Disposition: HOME Prescriptions: Ibuprofen TAB* [Motrin TAB* 800 MG] 800 mg PO Q8H PRN #12 tab PRN Reason: Pain Patient Education Materials: Toothache (ED) Referrals: Aris Torres MD [Primary Care Provider] - Additional Instructions: Please call your dentist as soon as possible. Return to the ED with any new or worsening symptoms. - Billing Disposition and Condition Condition: STABLE Disposition: Home - Attestation Statements Document Initiated by Scribe: Yes Documenting Scribe: Miriam Alicea Provider For Whom Rohan is Documenting (Include Credential): Chon Pettit MD. Scribe Attestation: Miriam Allen scribed for Chon Pettit MD. on 04/19/19 at 1716. Scribe Documentation Reviewed: Yes Provider Attestation: The documentation as recorded by the Miriam cervantes accurately reflects the service I personally performed and the decisions made by me, Chon Pettit MD. Status of Scribe Document: Viewed
[2019-04-19 14:50] VITALS: BP 145/89
== END | disposition home or self-care (01) ==
LOC: ED 13:21
DX: K08.89 Other specified disorders of teeth and supporting structures (principal); S03.2XXA Dislocation of tooth, initial encounter; X58.XXXA Exposure to other specified factors, initial encounter; Y92.9 Unspecified place or not applicable; K02.9 Dental caries, unspecified; J44.9 Chronic obstructive pulmonary disease, unspecified; F17.210 Nicotine dependence, cigarettes, uncomplicated
CPT/HCPCS: 99282

== ENCOUNTER 2022-11-13 08:23 | Inpatient (IN) ==
[2022-11-13] MEDS ORDERED: Al Hydrox/Mg Hydrox/Simet LIQ 30 ML UDC PO PRN (11:38)
[2022-11-13 12:58] LABS: Urine Benzodiazepine Screen None Detected (None Detect); Urine Cannabinoids Screen None Detected (None Detect); Urine Opiates Screen None Detected (None Detect)
[2022-11-14 07:51] LABS: ABS Eosinophils 0.1 10^3/ul (0-0.6); ABS Lymphocytes 2.1 10^3/ul (1.0-4.8); ABS Monocytes 0.3 10^3/ul (0-0.8); ABS Neutrophils 3.1 10^3/ul (1.5-7.7); Eosinophil % 2.1 %; Hematocrit 50 % (35-47); Hemoglobin 16.7 g/dL (12.0-16.0); Lymphocyte % 37.1 %; Mean Corpuscular HGB Conc 34 g/dL (31-36); Mean Corpuscular Hemoglobin 32 pg (27-31); Mean Corpuscular Volume 96 fL (80-97); Mean Platelet Volume 6.4 fL (7.4-10.4); Platelet Count 266 10^3/uL (150-450); Red Blood Count 5.18 10^6 /uL (3.70-4.87); Red Cell Distribution Width 13 % (10-15); White Blood Count 5.8 10^3/uL (3.5-10.8)
[2022-11-14 08:20] LABS: ALT 15 U/L (7-52); AST 18 U/L (13-39); Albumin 4.4 g/dL (3.2-5.2); Albumin/Globulin Ratio 1.9 (1-3); Alkaline Phosphatase 62 U/L (35-149); Anion Gap 6 mmol/L (2-11); Blood Urea Nitrogen 11 mg/dL (6-24); CO2 Carbon Dioxide 29 mmol/L (22-32); Calcium 9.7 mg/dL (8.6-10.3); Chloride 105 mmol/L (101-111); Cholesterol 200 mg/dL; Globulin 2.3 g/dL (2-4); Glucose 80 mg/dL (70-100); HDL Cholesterol 82.8 mg/dL; LDL Cholesterol 96 mg/dL; Potassium 4.6 mmol/L (3.5-5.0); Sodium 140 mmol/L (135-145); Total Protein 6.7 g/dL (6.4-8.9); Triglycerides 108 mg/dL; eGFR CKD-EPI 54.9 (>60)
[2022-11-14 08:26] LABS: HCG Pregnancy < 0.60 mIU/mL
[2022-11-14] MEDS: Nicotine PATCH 21 MG/24 HR PATCH TRANSDERM SCH (10:48)
[2022-11-14 20:12] VITALS: BP 138/77
[2022-11-15] MEDS: Nicotine PATCH 21 MG/24 HR PATCH TRANSDERM SCH (09:26)
[2022-11-16] MEDS: Nicotine PATCH 21 MG/24 HR PATCH TRANSDERM SCH (07:32)
== END 2022-11-16 14:16 | disposition home or self-care (01) | DRG 774 ==
LOC: ED 08:23 → EDHOLD 11:31 → BSU 15:43
PROVIDERS: ADMIT Psychiatry & Neurology Addiction Psychiatry; ATTEND Psychiatry & Neurology Addiction Psychiatry